=== PATIENT | male | born 1995 | race Caucasian/White ===

== ENCOUNTER 2016-11-09 23:13 | Emergency (ER) | payer OTHER ==
[2016-11-09 23:18] VITALS: BP 114/89; PULSE 97; RESP 16; TEMP 98.4; O2SAT 94
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
[2016-11-10] MEDS ORDERED: ER GLUE 1 EA MISC ONE (00:15)
[2016-11-10] MEDS ORDERED: TDAP ADULT 0.5 ML INJ (BOOSTRIX) IM ONE (00:15)
[2016-11-10] MEDS ORDERED: SKIN ADHESIVE (DERMABOND) 1 EACH TP ONE (00:31)
== END 2016-11-10 01:30 | disposition home or self-care (01) ==
DX: S01.111A Laceration without foreign body of right eyelid and periocular area, initial encounter (principal); Z23 Encounter for immunization